=== PATIENT | male | born 1980 | race Caucasian/White ===

== ENCOUNTER 2019-07-28 20:39 | Inpatient (IN) | payer MEDICAID, OTHER ==
[~2019-07-28] VITALS: Ht 172.7 cm; Wt 101.2 kg
[2019-07-28 22:33] LABS: BASOPHILS % 0.6 % (0.0-2.0); HEMATOCRIT. 44.8 % (42.0-52.0); HEMOGLOBIN. 15.8 g/dL (14.0-18.0); MEAN CORPUSCULAR HEMOGLOBIN 31.8 pg (28.0-32.0); MEAN CORPUSCULAR VOLUME 89.9 fL (80.0-94.0); MEAN PLATELET VOLUME 8.4 fl (7.4-10.4); MONOCYTES % 6.7 % (2.0-8.0); NEUTROPHILS % 55.7 % (40.0-76.0); PLATELET 207 x1000/uL (130-400); RED BLOOD CELL COUNT 4.98 mill/uL (4.7-6.1); RED CELL DISTRIBUTION WIDTH 13.4 % (11.6-14.6)
[2019-07-28 22:34] LABS: CLARITY URINE CLEAR (CLEAR); COLOR URINE YELLOW (YELLOW); KETONES URINE NEGATIVE (NEGATIVE); LEUKOCYTE ESTERASE URINE NEGATIVE (NEGATIVE); NITRITE URINE NEGATIVE (NEGATIVE); OCCULT BLOOD URINE NEGATIVE (NEGATIVE); PH URINE 5.5 (4.5-8.0); PROTEIN URINE NEGATIVE (NEGATIVE); SPECIFIC GRAVITY URINE 1.041 (1.005-1.030); UROBILINOGEN URINE 0.2 E.U./dL (0.2-1.0)
[2019-07-28 22:39] LABS: CHLORIDE 99 mEq/L (98-107)
[2019-07-28 22:44] LABS: ETHANOL BLOOD < 10 mg/dL
[2019-07-28 22:46] LABS: *AMPHETAMINES SCREEN URINE PRESUMTIVE POSITIVE (NEGATIVE); *BARBITURATES SCREEN URINE NEGATIVE (NEGATIVE)
[2019-07-28 22:47] LABS: *BENZODIAZEPINES SCREEN URINE NEGATIVE (NEGATIVE); *COCAINE SCREEN URINE NEGATIVE (NEGATIVE); METHADONE URINE SCREEN NEGATIVE (NEGATIVE); OPIATES URINE SCREEN NEGATIVE (NEGATIVE); PHENCYCLIDINE URINE SCREEN NEGATIVE (NEGATIVE)
[2019-07-28 22:48] LABS: CANNABINOID URINE SCREEN PRESUMTIVE POSITIVE (NEGATIVE)
[2019-07-28] MEDS ORDERED: INSULIN REGULAR (HUMULIN R) 300UNITS/3ML SUBCUT ONE (23:00)
[2019-07-28] MEDS ORDERED: SODIUM CHLORIDE 0.9% 1,000 ML IV ONE ×2 (23:00)
[2019-07-29] MEDS ORDERED: AMLODIPINE 2.5MG TABLET PO ONE
[2019-07-29] MEDS ORDERED: SODIUM CHLORIDE 0.9% 1,000 ML IV ONE (11:38)
[2019-07-29 12:23] LABS: CHLORIDE 104 mEq/L (98-107)
[2019-07-29 12:30] LABS: BETA HYDROXYBUTYRATE 0.1 mMol/L (0.0-0.3)
[2019-07-29 12:41] LABS: BASOPHILS % 0.5 % (0.0-2.0); EOSINOPHILS % 2.2 % (0.0-5.0); HEMATOCRIT. 43.3 % (42.0-52.0); HEMOGLOBIN. 15.4 g/dL (14.0-18.0); LYMPHOCYTES % 25.5 % (20.0-50.0); MEAN CORPUSCULAR HEMOGLOBIN 31.9 pg (28.0-32.0); MEAN CORPUSCULAR VOLUME 89.6 fL (80.0-94.0); MEAN PLATELET VOLUME 8.2 fl (7.4-10.4); NEUTROPHILS % 65.8 % (40.0-76.0); PLATELET 191 x1000/uL (130-400); RED BLOOD CELL COUNT 4.84 mill/uL (4.7-6.1); RED CELL DISTRIBUTION WIDTH 13.6 % (11.6-14.6)
[2019-07-29] MEDS ORDERED: INSULIN REGULAR (HUMULIN R) 300UNITS/3ML IV SCH (13:00)
[2019-07-29] MEDS ORDERED: IBUPROFEN 600MG TABLET PO PRN ×2 (14:30→18:30)
[2019-07-29] MEDS ORDERED: MAGNESIUM/ALUMINUM HYDROXIDE/SIMETHICONE 30ML UDC PO PRN (20:45)
[2019-07-29] MEDS ORDERED: DIPHENHYDRAMINE 50MG/ML VIAL IV PRN (20:45)
[2019-07-29] MEDS ORDERED: DOCUSATE SODIUM 100MG CAPSULE PO PRN (20:45)
[2019-07-29] MEDS ORDERED: MORPHINE SULFATE 2 MG/ML CPJ (NOT FOR IM USE) IV PRN (20:45)
[2019-07-29] MEDS ORDERED: HYDROCODONE/ACETAMINOPHEN 10/325MG TABLET PO PRN (20:45)
[2019-07-29] MEDS ORDERED: IPRATROPIUM/ALBUTEROL 0.5-3(2.5)MG/3ML NEB HHN PRN (20:45)
[2019-07-29] MEDS ORDERED: ENOXAPARIN 40MG/0.4ML SYR SUBCUT SCH (20:45)
[2019-07-29] MEDS ORDERED: DEXTROSE 50% WATER 50ML SYRINGE IV PRN (20:45)
[2019-07-29] MEDS ORDERED: ONDANSETRON HCL 4MG/2ML INJ IV PRN (20:45)
[2019-07-29] MEDS ORDERED: NA PHOS,M-B/NA PHOS,DI-BA ENEMA 118ML PR PRN (20:45)
[2019-07-29] MEDS ORDERED: LORAZEPAM 2MG/ML CPJ IV PRN (20:45)
[2019-07-29] MEDS ORDERED: HYDRALAZINE 20MG/ML VIAL IV PRN (20:45)
[2019-07-29 21:00] VITALS: BP 141/105
[2019-07-29] MEDS: BLOOD SUGAR DIAGNOSTIC STRIP TEST SCH (21:00)
[2019-07-29 21:30] VITALS: BP 141/105
[2019-07-29] MEDS: INSULIN LISPRO 100 UNITS/ML SUBCUT SCH (22:03)
[2019-07-29] MEDS: ENOXAPARIN 30MG/0.3ML SYR SUBCUT SCH (22:04)
[2019-07-29] MEDS: SODIUM CHLORIDE 0.9% INJ 3ML FLUSH IVF SCH (22:05)
[2019-07-29] MEDS: SODIUM CHLORIDE 0.45% 1,000 ML IV SCH (23:15)
[2019-07-30] VITALS: BP 116/73
[2019-07-30 04:00] VITALS: BP 145/124
[2019-07-30] MEDS: SODIUM CHLORIDE 0.9% INJ 3ML FLUSH IVF SCH ×3 (05:23→21:21)
[2019-07-30] MEDS: BLOOD SUGAR DIAGNOSTIC STRIP TEST SCH ×4 (06:19→21:21)
[2019-07-30 08:00] VITALS: BP 125/98
[2019-07-30] MEDS: CLONIDINE 0.1MG TABLET PO PRN (08:20)
[2019-07-30] MEDS: ENOXAPARIN 30MG/0.3ML SYR SUBCUT SCH ×2 (08:21→21:22)
[2019-07-30] MEDS: INSULIN LISPRO 100 UNITS/ML SUBCUT SCH ×4 (08:22→21:33)
[2019-07-30] MEDS: SODIUM CHLORIDE 0.45% 1,000 ML IV SCH ×2 (08:44→21:21)
[2019-07-30 09:43] LABS: BASOPHILS % 0.4 % (0.0-2.0); HEMATOCRIT. 43.3 % (42.0-52.0); HEMOGLOBIN. 15.2 g/dL (14.0-18.0); LYMPHOCYTES % 27.4 % (20.0-50.0); MEAN CORPUSCULAR HEMOGLOBIN 31.3 pg (28.0-32.0); MEAN PLATELET VOLUME 8.1 fl (7.4-10.4); MONOCYTES % 5.1 % (2.0-8.0); NEUTROPHILS % 65.1 % (40.0-76.0); PLATELET 172 x1000/uL (130-400); RED BLOOD CELL COUNT 4.86 mill/uL (4.7-6.1); RED CELL DISTRIBUTION WIDTH 13.4 % (11.6-14.6)
[2019-07-30 09:45] LABS: CHLORIDE 102 mEq/L (98-107)
[2019-07-30 12:00] VITALS: BP 128/87
[2019-07-30 16:00] VITALS: BP 139/89
[2019-07-30 20:00] VITALS: BP 142/76
[2019-07-31] VITALS: BP 131/91
[2019-07-31 04:00] VITALS: BP 138/90
[2019-07-31] MEDS: BLOOD SUGAR DIAGNOSTIC STRIP TEST SCH ×4 (06:45→21:08)
[2019-07-31] MEDS: SODIUM CHLORIDE 0.9% INJ 3ML FLUSH IVF SCH ×3 (06:45→21:08)
[2019-07-31 08:00] VITALS: BP 138/79
[2019-07-31] MEDS: ENOXAPARIN 30MG/0.3ML SYR SUBCUT SCH ×2 (08:26→21:07)
[2019-07-31] MEDS: INSULIN LISPRO 100 UNITS/ML SUBCUT SCH ×4 (08:26→21:07)
[2019-07-31 12:00] VITALS: BP 141/110
[2019-07-31] MEDS: SODIUM CHLORIDE 0.45% 1,000 ML IV SCH ×2 (12:30→23:50)
[2019-07-31] MEDS: ACETAMINOPHEN 325MG TABLET PO PRN ×2 (12:41→21:08)
[2019-07-31] MEDS: CLONIDINE 0.1MG TABLET PO PRN ×2 (12:48→21:10)
[2019-07-31 16:00] VITALS: BP 134/86
[2019-07-31 20:44] VITALS: BP 162/106
[2019-07-31] MEDS: GUAIFENESIN 200MG/10ML SUGAR FREE UDC PO PRN (21:07)
[2019-08-01 00:45] VITALS: BP 145/112
[2019-08-01] MEDS: GUAIFENESIN 200MG/10ML SUGAR FREE UDC PO PRN (03:05)
[2019-08-01 04:00] VITALS: BP 145/97
[2019-08-01] MEDS: ACETAMINOPHEN 325MG TABLET PO PRN ×2 (04:11→20:22)
[2019-08-01] MEDS: BLOOD SUGAR DIAGNOSTIC STRIP TEST SCH ×4 (06:35→20:22)
[2019-08-01] MEDS: SODIUM CHLORIDE 0.9% INJ 3ML FLUSH IVF SCH ×3 (06:35→20:56)
[2019-08-01 08:00] VITALS: BP 177/109
[2019-08-01] MEDS: ENOXAPARIN 30MG/0.3ML SYR SUBCUT SCH ×2 (08:53→20:22)
[2019-08-01] MEDS: INSULIN LISPRO 100 UNITS/ML SUBCUT SCH ×4 (08:58→20:55)
[2019-08-01 12:00] VITALS: BP 146/96
[2019-08-01] MEDS: LISINOPRIL 20MG TABLET PO SCH (13:16)
[2019-08-01] MEDS: SODIUM CHLORIDE 0.45% 1,000 ML IV SCH (15:18)
[2019-08-01 16:00] VITALS: BP 166/112
[2019-08-01] MEDS: CLONIDINE 0.1MG TABLET PO PRN (17:56)
[2019-08-01 20:39] VITALS: BP 136/97
[2019-08-02] VITALS: BP 121/84
[2019-08-02 04:00] VITALS: BP 132/97
[2019-08-02] MEDS: SODIUM CHLORIDE 0.45% 1,000 ML IV SCH (04:53)
[2019-08-02] MEDS: ACETAMINOPHEN 325MG TABLET PO PRN (04:55)
[2019-08-02] MEDS: SODIUM CHLORIDE 0.9% INJ 3ML FLUSH IVF SCH ×3 (05:55→21:47)
[2019-08-02] MEDS: BLOOD SUGAR DIAGNOSTIC STRIP TEST SCH ×4 (06:33→21:17)
[2019-08-02 08:00] VITALS: BP 135/86
[2019-08-02] MEDS: LISINOPRIL 20MG TABLET PO SCH (08:31)
[2019-08-02] MEDS: ENOXAPARIN 30MG/0.3ML SYR SUBCUT SCH ×2 (08:31→21:34)
[2019-08-02] MEDS: INSULIN LISPRO 100 UNITS/ML SUBCUT SCH ×4 (08:51→21:47)
[2019-08-02 12:00] VITALS: BP 136/86
[2019-08-02 16:00] VITALS: BP 136/70
[2019-08-02 20:00] VITALS: BP 129/84
[2019-08-03] VITALS: BP 139/92
[2019-08-03 04:00] VITALS: BP 127/66
[2019-08-03] MEDS: SODIUM CHLORIDE 0.9% INJ 3ML FLUSH IVF SCH ×3 (05:06→21:09)
[2019-08-03] MEDS: BLOOD SUGAR DIAGNOSTIC STRIP TEST SCH ×4 (06:01→20:46)
[2019-08-03 08:00] VITALS: BP 120/79
[2019-08-03] MEDS: INSULIN LISPRO 100 UNITS/ML SUBCUT SCH ×4 (08:16→20:45)
[2019-08-03] MEDS: ENOXAPARIN 30MG/0.3ML SYR SUBCUT SCH ×2 (08:17→20:44)
[2019-08-03] MEDS: LISINOPRIL 20MG TABLET PO SCH (08:17)
[2019-08-03 12:00] VITALS: BP 126/80
[2019-08-03 16:00] VITALS: BP 133/87
[2019-08-03 20:00] VITALS: BP 137/92
[2019-08-04] VITALS: BP 120/60
[2019-08-04 05:56] VITALS: BP 140/79
[2019-08-04] MEDS: SODIUM CHLORIDE 0.9% INJ 3ML FLUSH IVF SCH ×3 (06:08→21:36)
[2019-08-04] MEDS: BLOOD SUGAR DIAGNOSTIC STRIP TEST SCH ×4 (06:20→20:09)
[2019-08-04 08:00] VITALS: BP 135/93
[2019-08-04] MEDS: ENOXAPARIN 30MG/0.3ML SYR SUBCUT SCH ×2 (08:10→20:08)
[2019-08-04] MEDS: INSULIN LISPRO 100 UNITS/ML SUBCUT SCH ×4 (08:12→20:09)
[2019-08-04] MEDS: LISINOPRIL 20MG TABLET PO SCH (08:18)
[2019-08-04 12:00] VITALS: BP 119/89
[2019-08-04] MEDS: ACETAMINOPHEN 325MG TABLET PO PRN (13:02)
[2019-08-04 16:00] VITALS: BP 121/85
[2019-08-04 20:26] VITALS: BP 122/89
[2019-08-05] VITALS (7 sets, daily range): BP systolic 114–162; BP diastolic 75–98
[2019-08-05] MEDS: SODIUM CHLORIDE 0.9% INJ 3ML FLUSH IVF SCH ×3 (05:16→22:31)
[2019-08-05] MEDS: BLOOD SUGAR DIAGNOSTIC STRIP TEST SCH ×4 (06:22→22:31)
[2019-08-05] MEDS: ENOXAPARIN 30MG/0.3ML SYR SUBCUT SCH ×2 (08:01→22:02)
[2019-08-05] MEDS: LISINOPRIL 20MG TABLET PO SCH (08:02)
[2019-08-05] MEDS: INSULIN LISPRO 100 UNITS/ML SUBCUT SCH ×4 (08:03→22:31)
[2019-08-05] MEDS: ACETAMINOPHEN 325MG TABLET PO PRN ×2 (16:21→22:03)
[2019-08-06] MEDS: CLONIDINE 0.1MG TABLET PO PRN ×2 (00:04→23:54)
[2019-08-06] MEDS: GUAIFENESIN 200MG/10ML SUGAR FREE UDC PO PRN (00:06)
[2019-08-06 04:00] VITALS: BP 119/84
[2019-08-06] MEDS: BLOOD SUGAR DIAGNOSTIC STRIP TEST SCH ×4 (06:49→20:11)
[2019-08-06] MEDS: SODIUM CHLORIDE 0.9% INJ 3ML FLUSH IVF SCH ×3 (06:49→20:12)
[2019-08-06 08:00] VITALS: BP 128/70
[2019-08-06] MEDS: INSULIN LISPRO 100 UNITS/ML SUBCUT SCH ×4 (08:22→20:59)
[2019-08-06] MEDS: ENOXAPARIN 30MG/0.3ML SYR SUBCUT SCH ×2 (08:22→20:12)
[2019-08-06] MEDS: LISINOPRIL 20MG TABLET PO SCH (08:22)
[2019-08-06] MEDS: ACETAMINOPHEN 325MG TABLET PO PRN ×2 (09:00→18:00)
[2019-08-06 12:00] VITALS: BP 134/91
[2019-08-06 16:00] VITALS: BP 138/89
[2019-08-06 20:00] VITALS: BP 138/92
[2019-08-07] VITALS (7 sets, daily range): BP systolic 113–152; BP diastolic 72–97
[2019-08-07] MEDS: BLOOD SUGAR DIAGNOSTIC STRIP TEST SCH ×4 (05:49→20:51)
[2019-08-07] MEDS: INSULIN LISPRO 100 UNITS/ML SUBCUT SCH ×4 (05:49→20:59)
[2019-08-07] MEDS: SODIUM CHLORIDE 0.9% INJ 3ML FLUSH IVF SCH ×3 (05:50→22:00)
[2019-08-07 06:12] LABS: HEMOGLOBIN 16.1 g/dL (14.0-18.0); MEAN CORPUSCULAR HEMOGLOBIN 31.6 pg (28.0-32.0); MEAN CORPUSCULAR VOLUME 88.4 fL (80.0-94.0); PLATELET 206 x1000/uL (130-400); RED BLOOD CELL COUNT 5.09 mill/uL (4.7-6.1); RED CELL DISTRIBUTION WIDTH 13.4 % (11.6-14.6)
[2019-08-07 06:24] LABS: CHLORIDE 105 mEq/L (98-107)
[2019-08-07] MEDS: LISINOPRIL 20MG TABLET PO SCH (08:40)
[2019-08-07] MEDS: ACETAMINOPHEN 325MG TABLET PO PRN ×2 (08:41→20:45)
[2019-08-07] MEDS: ENOXAPARIN 30MG/0.3ML SYR SUBCUT SCH ×2 (08:47→20:51)
[2019-08-07] MEDS ORDERED: HYDRALAZINE 10 MG in SODIUM CHLORIDE 0.9% 49.5 ML IV PRN (10:45)
[2019-08-07] MEDS: GUAIFENESIN 200MG/10ML SUGAR FREE UDC PO PRN (20:51)
[2019-08-08] VITALS: BP 128/82
[2019-08-08 04:00] VITALS: BP 142/91
[2019-08-08] MEDS: SODIUM CHLORIDE 0.9% INJ 3ML FLUSH IVF SCH ×3 (05:06→22:03)
[2019-08-08] MEDS: BLOOD SUGAR DIAGNOSTIC STRIP TEST SCH ×4 (06:48→21:18)
[2019-08-08] MEDS: INSULIN LISPRO 100 UNITS/ML SUBCUT SCH ×4 (07:50→22:03)
[2019-08-08 08:00] VITALS: BP 126/87
[2019-08-08] MEDS: GUAIFENESIN 200MG/10ML SUGAR FREE UDC PO PRN ×2 (09:09→21:17)
[2019-08-08] MEDS: LISINOPRIL 20MG TABLET PO SCH (09:09)
[2019-08-08] MEDS: ENOXAPARIN 30MG/0.3ML SYR SUBCUT SCH ×2 (09:09→21:17)
[2019-08-08 16:00] VITALS: BP 144/94
[2019-08-08] MEDS: ACETAMINOPHEN 325MG TABLET PO PRN (17:26)
[2019-08-08 20:00] VITALS: BP 133/90
[2019-08-09 00:15] VITALS: BP 121/78
[2019-08-09] MEDS: ACETAMINOPHEN 325MG TABLET PO PRN ×2 (01:31→09:46)
[2019-08-09 04:00] VITALS: BP 117/84
[2019-08-09] MEDS: SODIUM CHLORIDE 0.9% INJ 3ML FLUSH IVF SCH ×2 (05:37→14:00)
[2019-08-09] MEDS: BLOOD SUGAR DIAGNOSTIC STRIP TEST SCH ×4 (06:56→21:40)
[2019-08-09] MEDS: INSULIN LISPRO 100 UNITS/ML SUBCUT SCH ×4 (06:56→22:14)
[2019-08-09 08:00] VITALS: BP 126/91
[2019-08-09] MEDS: LISINOPRIL 20MG TABLET PO SCH (09:46)
[2019-08-09] MEDS: ENOXAPARIN 30MG/0.3ML SYR SUBCUT SCH ×2 (09:46→22:14)
[2019-08-09 20:00] VITALS: BP 136/81
[2019-08-10] VITALS: BP 131/79
[2019-08-10 04:00] VITALS: BP 152/98
[2019-08-10] MEDS: ACETAMINOPHEN 325MG TABLET PO PRN ×2 (04:11→15:37)
[2019-08-10] MEDS: BLOOD SUGAR DIAGNOSTIC STRIP TEST SCH ×4 (07:39→21:22)
[2019-08-10] MEDS: INSULIN LISPRO 100 UNITS/ML SUBCUT SCH ×4 (07:39→21:40)
[2019-08-10 08:00] VITALS: BP 140/78
[2019-08-10] MEDS: LISINOPRIL 20MG TABLET PO SCH (08:27)
[2019-08-10] MEDS: ENOXAPARIN 30MG/0.3ML SYR SUBCUT SCH ×2 (08:28→21:40)
[2019-08-10] MEDS: GUAIFENESIN 200MG/10ML SUGAR FREE UDC PO PRN (09:01)
[2019-08-10 12:00] VITALS: BP 137/80
[2019-08-10] MEDS: SODIUM CHLORIDE 0.9% INJ 3ML FLUSH IVF SCH (13:01)
[2019-08-10 16:00] VITALS: BP 132/73
[2019-08-10 20:00] VITALS: BP 127/92
[2019-08-11] VITALS: BP 128/96
[2019-08-11 04:00] VITALS: BP 124/94
[2019-08-11] MEDS: BLOOD SUGAR DIAGNOSTIC STRIP TEST SCH ×4 (06:28→21:07)
[2019-08-11] MEDS: INSULIN LISPRO 100 UNITS/ML SUBCUT SCH ×4 (07:50→21:13)
[2019-08-11 08:00] VITALS: BP 141/97
[2019-08-11] MEDS: ACETAMINOPHEN 325MG TABLET PO PRN ×2 (08:15→17:46)
[2019-08-11] MEDS: LISINOPRIL 20MG TABLET PO SCH (08:16)
[2019-08-11] MEDS: ENOXAPARIN 30MG/0.3ML SYR SUBCUT SCH ×2 (08:16→21:00)
[2019-08-11 12:00] VITALS: BP 130/85
[2019-08-11] MEDS: SODIUM CHLORIDE 0.9% INJ 3ML FLUSH IVF SCH ×2 (13:12→21:01)
[2019-08-11 16:00] VITALS: BP 129/93
[2019-08-11 20:00] VITALS: BP 148/93
[2019-08-11] MEDS: GUAIFENESIN 200MG/10ML SUGAR FREE UDC PO PRN (21:00)
[2019-08-12] VITALS: BP 129/80
[2019-08-12] MEDS: ACETAMINOPHEN 325MG TABLET PO PRN (03:03)
[2019-08-12 04:00] VITALS: BP 127/87
[2019-08-12] MEDS: SODIUM CHLORIDE 0.9% INJ 3ML FLUSH IVF SCH (05:53)
[2019-08-12] MEDS: BLOOD SUGAR DIAGNOSTIC STRIP TEST SCH ×2 (06:34→12:20)
[2019-08-12] MEDS: INSULIN LISPRO 100 UNITS/ML SUBCUT SCH ×2 (07:50→12:50)
[2019-08-12 08:00] VITALS: BP 130/91
[2019-08-12] MEDS: LISINOPRIL 20MG TABLET PO SCH (08:57)
[2019-08-12] MEDS: ENOXAPARIN 30MG/0.3ML SYR SUBCUT SCH (08:58)
[2019-08-12 12:00] VITALS: BP 146/99
== END 2019-08-12 15:56 | disposition home or self-care (01) | DRG 420 ==
LOC: ER 20:39 → MICUSO 07-29 14:30 → EDBEDREQ 07-29 14:42 → 7WST 07-29 21:52 → 6WST 07-30 23:12 → 6EST 08-07 10:27
PROVIDERS: ADMIT Internal Medicine; ATTEND Internal Medicine
DX: E11.65 Type 2 diabetes mellitus with hyperglycemia (principal); F17.210 Nicotine dependence, cigarettes, uncomplicated; R53.1 Weakness; F19.10 Other psychoactive substance abuse, uncomplicated; Z20.828 Contact with and (suspected) exposure to other viral communicable diseases; Z59.0 Homelessness; Z91.19 Patient's noncompliance with other medical treatment and regimen; Z79.899 Other long term (current) drug therapy; Z79.4 Long term (current) use of insulin
CPT/HCPCS: 36415; 71045; 80048; 80053; 80305; 80320; 81003; 82010; 82962; 85025; 85027; 93005; 97116; 97162; 99285; J0360; J1200; J1650; J1815; J7030; G0480; U0003-CS

== ENCOUNTER 2019-09-04 18:24 | Emergency (ER) | payer MEDICAID ==
[~2019-09-04] VITALS: Ht 177.8 cm; Wt 112.0 kg
[2019-09-04] MEDS ORDERED: SODIUM CHLORIDE 0.9% 1,000 ML IV ONE (19:31)
[2019-09-04 20:29] LABS: BASOPHILS % 0.5 % (0.0-2.0); HEMATOCRIT. 39.6 % (42.0-52.0); HEMOGLOBIN. 14.1 g/dL (14.0-18.0); LYMPHOCYTES % 34.3 % (20.0-50.0); MEAN CORPUSCULAR VOLUME 90.2 fL (80.0-94.0); MEAN PLATELET VOLUME 8.2 fl (7.4-10.4); NEUTROPHILS % 56.2 % (40.0-76.0); PLATELET 215 x1000/uL (130-400); RED BLOOD CELL COUNT 4.39 mill/uL (4.7-6.1); RED CELL DISTRIBUTION WIDTH 13.2 % (11.6-14.6)
[2019-09-04 20:45] LABS: CHLORIDE 101 mEq/L (98-107)
[2019-09-04 20:52] LABS: PHOSPHORUS 3.1 mg/dL (2.5-4.9)
[2019-09-04 21:37] LABS: BETA HYDROXYBUTYRATE 0.1 mMol/L (0.0-0.3)
[2019-09-04 23:00] LABS: CLARITY URINE CLEAR (CLEAR); COLOR URINE YELLOW (YELLOW); KETONES URINE NEGATIVE (NEGATIVE); LEUKOCYTE ESTERASE URINE NEGATIVE (NEGATIVE); NITRITE URINE NEGATIVE (NEGATIVE); OCCULT BLOOD URINE NEGATIVE (NEGATIVE); PH URINE 6.5 (4.5-8.0); PROTEIN URINE NEGATIVE (NEGATIVE); SPECIFIC GRAVITY URINE 1.031 (1.005-1.030)
[2019-09-04] MEDS ORDERED: INSULIN REGULAR (HUMULIN R) 300UNITS/3ML SUBCUT ONE (23:15)
[2019-09-05 13:15] VITALS: BP 149/87
== END 2019-09-05 13:45 | disposition home or self-care (01) ==
LOC: ER 18:24
DX: Z03.818 Encounter for observation for suspected exposure to other biological agents ruled out (principal); R53.1 Weakness; R05 Cough; R06.02 Shortness of breath; E11.65 Type 2 diabetes mellitus with hyperglycemia; Z76.0 Encounter for issue of repeat prescription; Z79.4 Long term (current) use of insulin; Z59.0 Homelessness
CPT/HCPCS: 36415; 71045; 80053; 81003; 82010; 82962; 83615; 83690; 83735; 84100; 85025; 96360; 96372; 99285; C9803; J1815; J7030; U0003

== ENCOUNTER 2020-07-08 13:02 | Inpatient (IN) | payer MEDICAID ==
[~2020-07-08] VITALS: Ht 170.2 cm; Wt 98.4 kg
[2020-07-08 14:18] LABS: CHLORIDE 101 mEq/L (98-107)
[2020-07-08 14:23] LABS: BASOPHILS % 0.3 % (0.0-2.0); EOSINOPHILS % 2.9 % (0.0-5.0); HEMATOCRIT. 43.3 % (42.0-52.0); HEMOGLOBIN. 14.9 g/dL (14.0-18.0); LYMPHOCYTES % 25.2 % (20.0-50.0); MEAN CORPUSCULAR HEMOGLOBIN 31.2 pg (28.0-32.0); MEAN CORPUSCULAR VOLUME 90.9 fL (80.0-94.0); MONOCYTES % 6.5 % (2.0-8.0); NEUTROPHILS % 65.1 % (40.0-76.0); PLATELET 206 x1000/uL (130-400); RED BLOOD CELL COUNT 4.77 mill/uL (4.7-6.1); RED CELL DISTRIBUTION WIDTH 13.8 % (11.6-14.6)
[2020-07-08] MEDS ORDERED: PIPERACILLIN/TAZ 3.375G PREMIX 50 ML IV ONE (15:15)
[2020-07-08] MEDS ORDERED: INSULIN REGULAR (HUMULIN R) 300UNITS/3ML VIAL IV STA (15:23)
[2020-07-08] MEDS ORDERED: LACTATED RINGERS 1,000 ML IV SCH (15:30)
[2020-07-08 15:45] LABS: ETHANOL BLOOD < 10 mg/dL
[2020-07-08] MEDS ORDERED: ASPIRIN 81MG EC TABLET PO ONE (16:15)
[2020-07-08] MEDS ORDERED: HEPARIN 25,000 UNITS PREMIX 250 ML IV STA (17:51)
[2020-07-08 17:56] LABS: CLARITY URINE CLEAR (CLEAR); COLOR URINE YELLOW (YELLOW); KETONES URINE NEGATIVE (NEGATIVE); LEUKOCYTE ESTERASE URINE NEGATIVE (NEGATIVE); NITRITE URINE NEGATIVE (NEGATIVE); OCCULT BLOOD URINE NEGATIVE (NEGATIVE); PH URINE 5.5 (4.5-8.0); PROTEIN URINE NEGATIVE (NEGATIVE); SPECIFIC GRAVITY URINE 1.034 (1.005-1.030); UROBILINOGEN URINE 0.2 E.U./dL (0.2-1.0)
[2020-07-08] MEDS ORDERED: MORPHINE SULFATE 4 MG/ML CPJ (NOT FOR IM USE) IV PRN (18:00)
[2020-07-08] MEDS ORDERED: HEPARIN 5000 UNITS/ML VIAL IV ONE (18:00)
[2020-07-08 18:17] LABS: *AMPHETAMINES SCREEN URINE PRESUMTIVE POSITIVE (NEGATIVE); *BARBITURATES SCREEN URINE NEGATIVE (NEGATIVE); *BENZODIAZEPINES SCREEN URINE NEGATIVE (NEGATIVE); *COCAINE SCREEN URINE NEGATIVE (NEGATIVE); METHADONE URINE SCREEN NEGATIVE (NEGATIVE)
[2020-07-08 18:18] LABS: CANNABINOID URINE SCREEN NEGATIVE (NEGATIVE); OPIATES URINE SCREEN NEGATIVE (NEGATIVE); PHENCYCLIDINE URINE SCREEN NEGATIVE (NEGATIVE)
[2020-07-08 19:55] LABS: PARTIAL THROMBOPLASTIN TIME 21.5 sec (23.4-31.0); PROTHROMBIN TIME 10.5 sec (9.6-11.0)
[2020-07-08] MEDS ORDERED: HEPARIN 5000 UNITS/ML VIAL IV PRN ×2 (20:00)
[2020-07-08] MEDS ORDERED: HEPARIN 5000 UNITS/ML VIAL IV NR (20:00)
[2020-07-08] MEDS ORDERED: HEPARIN 25,000 UNITS PREMIX 250 ML IV PRN (20:00)
[2020-07-09 08:30] VITALS: BP 144/115
[2020-07-09] MEDS ORDERED: VANCOMYCIN 1 G PREMIX 200 ML IV SCH ×2 (09:00→22:00)
[2020-07-09] MEDS ORDERED: DEXTROSE 50% WATER 50ML SYRINGE IV PRN ×2 (09:45)
[2020-07-09] MEDS ORDERED: ONDANSETRON HCL 4MG/2ML INJ IV PRN (09:45)
[2020-07-09] MEDS ORDERED: DIPHENHYDRAMINE 50MG/ML VIAL IV PRN (09:45)
[2020-07-09] MEDS ORDERED: ACETAMINOPHEN 325MG TABLET PO PRN (09:45)
[2020-07-09] MEDS ORDERED: DOCUSATE SODIUM 100MG CAPSULE PO PRN (09:45)
[2020-07-09] MEDS ORDERED: MAGNESIUM/ALUMINUM HYDROXIDE/SIMETHICONE 30ML UDC PO PRN (09:45)
[2020-07-09] MEDS ORDERED: CEFTRIAXONE 1,000 MG in DEXTROSE 5% WATER 50 ML IV SCH (10:00)
[2020-07-09] MEDS: OMEPRAZOLE 20MG CAPSULE EXTENDED RELEASE PO SCH (10:26)
[2020-07-09] MEDS: CEFTRIAXONE 1,000 MG in DEXTROSE 5% WATER 50 ML IV SCH (10:27)
[2020-07-09] MEDS: CLINDAMYCIN HCL 150MG CAPSULE PO SCH ×4 (10:27→21:05)
[2020-07-09] MEDS ORDERED: VANCOMYCIN 2,000 MG in DEXT 5% WATER 500 ML IV SCH (11:00)
[2020-07-09 11:41] LABS: HEMATOCRIT 46.2 % (42.0-52.0); HEMOGLOBIN 15.8 g/dL (14.0-18.0); MEAN CORPUSCULAR VOLUME 90.7 fL (80.0-94.0); PLATELET 193 x1000/uL (130-400); RED CELL DISTRIBUTION WIDTH 13.2 % (11.6-14.6)
[2020-07-09 11:50] LABS: CHLORIDE 101 mEq/L (98-107)
[2020-07-09 12:00] VITALS: BP 139/99
[2020-07-09] MEDS: BLOOD SUGAR DIAGNOSTIC STRIP TEST SCH ×3 (12:20→21:02)
[2020-07-09 13:00] VITALS: BP 144/115
[2020-07-09] MEDS: INSULIN LISPRO 100 UNITS/ML SUBCUT SCH ×3 (13:36→21:16)
[2020-07-09] MEDS ORDERED: PNEUMOCOCCAL 23-VAL P-SAC VAC 0.5 ML IM ONE (14:45)
[2020-07-09 16:00] VITALS: BP 134/90
[2020-07-09 16:18] LABS: CLARITY URINE CLEAR (CLEAR); COLOR URINE YELLOW (YELLOW); KETONES URINE NEGATIVE (NEGATIVE); LEUKOCYTE ESTERASE URINE NEGATIVE (NEGATIVE); NITRITE URINE NEGATIVE (NEGATIVE); OCCULT BLOOD URINE NEGATIVE (NEGATIVE); PH URINE 6.5 (4.5-8.0); PROTEIN URINE NEGATIVE (NEGATIVE); SPECIFIC GRAVITY URINE 1.027 (1.005-1.030); UROBILINOGEN URINE 0.2 E.U./dL (0.2-1.0)
[2020-07-09 17:09] LABS: CREATINE KINASE MB FRACTION 1.8 ng/mL (0.5-3.6)
[2020-07-09 20:00] VITALS: BP 196/95
[2020-07-09] MEDS: VANCOMYCIN 1 G PREMIX 200 ML IV SCH (21:05)
[2020-07-09] MEDS: CLONIDINE 0.1MG TABLET PO PRN (21:05)
[2020-07-10 00:28] VITALS: BP 106/65
[2020-07-10 04:00] VITALS: BP 148/86
[2020-07-10] MEDS: VANCOMYCIN 1 G PREMIX 200 ML IV SCH ×3 (05:52→21:23)
[2020-07-10 06:54] LABS: BASOPHILS % 0.5 % (0.0-2.0); EOSINOPHILS % 2.2 % (0.0-5.0); HEMOGLOBIN. 16.5 g/dL (14.0-18.0); LYMPHOCYTES % 24.5 % (20.0-50.0); MEAN CORPUSCULAR HEMOGLOBIN 31.6 pg (28.0-32.0); MEAN CORPUSCULAR VOLUME 89.9 fL (80.0-94.0); MEAN PLATELET VOLUME 8.1 fl (7.4-10.4); MONOCYTES % 5.4 % (2.0-8.0); NEUTROPHILS % 67.4 % (40.0-76.0); PLATELET 180 x1000/uL (130-400); RED BLOOD CELL COUNT 5.23 mill/uL (4.7-6.1); RED CELL DISTRIBUTION WIDTH 13.1 % (11.6-14.6)
[2020-07-10 07:01] LABS: CHLORIDE 101 mEq/L (98-107)
[2020-07-10 07:11] LABS: PHOSPHORUS 3.1 mg/dL (2.5-4.9)
[2020-07-10] MEDS: BLOOD SUGAR DIAGNOSTIC STRIP TEST SCH ×4 (07:41→20:31)
[2020-07-10 08:00] VITALS: BP 135/77
[2020-07-10] MEDS: CLINDAMYCIN HCL 150MG CAPSULE PO SCH ×4 (09:01→20:30)
[2020-07-10] MEDS: CEFTRIAXONE 1,000 MG in DEXTROSE 5% WATER 50 ML IV SCH (09:02)
[2020-07-10] MEDS: INSULIN LISPRO 100 UNITS/ML SUBCUT SCH ×4 (09:02→20:30)
[2020-07-10] MEDS: OMEPRAZOLE 20MG CAPSULE EXTENDED RELEASE PO SCH (09:02)
[2020-07-10 12:00] VITALS: BP 121/86
[2020-07-10] MEDS ORDERED: INFLUENZA VACCINE 05/PF 0.5 ML VIAL IM ONE (12:00)
[2020-07-10] MEDS ORDERED: PNEUMOCOCCAL 23-VAL P-SAC VAC 0.5 ML IM ONE (12:00)
[2020-07-10 16:00] VITALS: BP 132/92
[2020-07-10 20:16] VITALS: BP 141/84
[2020-07-10] MEDS: HYDROCODONE/ACETAMINOPHEN 5/325MG TABLET PO PRN (20:31)
[2020-07-10] MEDS: INSULIN GLARGINE UD 100 UNITS/ML SYR SUBCUT SCH (21:27)
[2020-07-11 00:16] VITALS: BP 108/72
[2020-07-11 04:10] VITALS: BP 142/86
[2020-07-11] MEDS: VANCOMYCIN 1 G PREMIX 200 ML IV SCH ×3 (05:36→21:00)
[2020-07-11] MEDS: BLOOD SUGAR DIAGNOSTIC STRIP TEST SCH ×4 (06:47→21:00)
[2020-07-11] MEDS: OMEPRAZOLE 20MG CAPSULE EXTENDED RELEASE PO SCH (06:56)
[2020-07-11 07:00] LABS: BASOPHILS % 0.5 % (0.0-2.0); EOSINOPHILS % 2.1 % (0.0-5.0); HEMATOCRIT. 45.9 % (42.0-52.0); HEMOGLOBIN. 16.4 g/dL (14.0-18.0); LYMPHOCYTES % 29.1 % (20.0-50.0); MEAN CORPUSCULAR HEMOGLOBIN 31.5 pg (28.0-32.0); MEAN CORPUSCULAR VOLUME 88.1 fL (80.0-94.0); MEAN PLATELET VOLUME 8.3 fl (7.4-10.4); MONOCYTES % 6.1 % (2.0-8.0); NEUTROPHILS % 62.2 % (40.0-76.0); PLATELET 183 x1000/uL (130-400); RED BLOOD CELL COUNT 5.21 mill/uL (4.7-6.1)
[2020-07-11 07:14] LABS: CHLORIDE 103 mEq/L (98-107)
[2020-07-11] MEDS: CLINDAMYCIN HCL 150MG CAPSULE PO SCH ×4 (07:57→20:59)
[2020-07-11] MEDS: CEFTRIAXONE 1,000 MG in DEXTROSE 5% WATER 50 ML IV SCH (07:57)
[2020-07-11 08:00] VITALS: BP 126/89
[2020-07-11] MEDS: INSULIN LISPRO 100 UNITS/ML SUBCUT SCH ×4 (08:08→20:58)
[2020-07-11 12:00] VITALS: BP 148/92
[2020-07-11] MEDS ORDERED: OMEP20CA14 PO (14:05)
[2020-07-11] MEDS ORDERED: LANTUSUD SUBCUT (14:05)
[2020-07-11] MEDS ORDERED: CLIN-26 PO (14:05)
[2020-07-11 16:00] VITALS: BP 126/89
[2020-07-11 19:42] VITALS: BP 163/90
[2020-07-11] MEDS: HYDROCODONE/ACETAMINOPHEN 5/325MG TABLET PO PRN (20:58)
[2020-07-11] MEDS: CLONIDINE 0.1MG TABLET PO PRN (21:00)
[2020-07-11] MEDS: INSULIN GLARGINE UD 100 UNITS/ML SYR SUBCUT SCH (22:06)
[2020-07-12 00:35] VITALS: BP 140/96
[2020-07-12 04:42] VITALS: BP 141/95
[2020-07-12] MEDS: VANCOMYCIN 1 G PREMIX 200 ML IV SCH ×2 (05:18→13:28)
[2020-07-12] MEDS: OMEPRAZOLE 20MG CAPSULE EXTENDED RELEASE PO SCH (06:18)
[2020-07-12] MEDS: BLOOD SUGAR DIAGNOSTIC STRIP TEST SCH ×3 (06:36→17:52)
[2020-07-12 06:56] LABS: CHLORIDE 103 mEq/L (98-107)
[2020-07-12 07:54] VITALS: BP 146/91
[2020-07-12 08:20] LABS: BASOPHILS % 1.4 % (0.0-2.0); EOSINOPHILS % 3.3 % (0.0-5.0); HEMOGLOBIN. 15.8 g/dL (14.0-18.0); LYMPHOCYTES % 35.3 % (20.0-50.0); MEAN CORPUSCULAR VOLUME 88.5 fL (80.0-94.0); MEAN PLATELET VOLUME 8.4 fl (7.4-10.4); MONOCYTES % 5.6 % (2.0-8.0); NEUTROPHILS % 54.4 % (40.0-76.0); PLATELET 179 x1000/uL (130-400); RED BLOOD CELL COUNT 5.09 mill/uL (4.7-6.1); RED CELL DISTRIBUTION WIDTH 13.1 % (11.6-14.6)
[2020-07-12] MEDS: CLINDAMYCIN HCL 150MG CAPSULE PO SCH ×3 (09:21→17:53)
[2020-07-12] MEDS: CEFTRIAXONE 1,000 MG in DEXTROSE 5% WATER 50 ML IV SCH (09:21)
[2020-07-12] MEDS: INSULIN LISPRO 100 UNITS/ML SUBCUT SCH ×3 (09:42→17:54)
[2020-07-12] MEDS: HYDROCODONE/ACETAMINOPHEN 5/325MG TABLET PO PRN (09:43)
[2020-07-12] MEDS ORDERED: AMLODIPINE 5MG TABLET PO SCH (10:45)
[2020-07-12 12:12] VITALS: BP 130/92
[2020-07-12 16:00] VITALS: BP 123/88
[2020-07-12 18:46] VITALS: BP 123/88
== END 2020-07-12 19:20 | disposition home or self-care (01) | DRG 812 ==
LOC: ER 13:51 → 6WST 18:02 → ENRESERV 07-09 07:29
PROVIDERS: ADMIT Internal Medicine; ATTEND Internal Medicine
DX: T43.621A Poisoning by amphetamines, accidental (unintentional), initial encounter (principal); E11.65 Type 2 diabetes mellitus with hyperglycemia; I86.1 Scrotal varices; K59.00 Constipation, unspecified; E78.00 Pure hypercholesterolemia, unspecified; F15.10 Other stimulant abuse, uncomplicated; I10 Essential (primary) hypertension; N49.2 Inflammatory disorders of scrotum; Z71.51 Drug abuse counseling and surveillance of drug abuser; Y92.89 Other specified places as the place of occurrence of the external cause; Z59.0 Homelessness; N50.3 Cyst of epididymis; R74.8 Abnormal levels of other serum enzymes
CPT/HCPCS: 36415; 71045; 74176; 76870; 80048; 80053; 80076; 80202; 80305; 80320; 81003; 82550; 82553; 82947; 82962; 83036; 83605; 83735; 83880; 84100; 84484; 85025; 85027; 90686; 90732; 93005; 93306; 93970; 93976; 97116; 97161; 99291; J0696; J1644; J1815; J2270; J2543; J3370; J7040; J7060; G0480

== ENCOUNTER 2020-11-10 03:25 | Emergency (ER) | payer MEDICAID ==
[~2020-11-10] VITALS: Ht 170.2 cm; Wt 109.0 kg
[~2020-11-10 03:25] MED LIST: CLIN-26 PO; LANTUSUD SUBCUT; OMEP20CA14 PO
[2020-11-10 06:21] LABS: BASOPHILS % 0.8 % (0.0-2.0); HEMATOCRIT. 40.2 % (42.0-52.0); HEMOGLOBIN. 14.1 g/dL (14.0-18.0); LYMPHOCYTES % 35.9 % (20.0-50.0); MEAN CORPUSCULAR HEMOGLOBIN 31.2 pg (28.0-32.0); MEAN CORPUSCULAR VOLUME 88.7 fL (80.0-94.0); MEAN PLATELET VOLUME 7.1 fl (7.4-10.4); MONOCYTES % 6.4 % (2.0-8.0); NEUTROPHILS % 53.9 % (40.0-76.0); PLATELET 250 x1000/uL (130-400); RED BLOOD CELL COUNT 4.53 mill/uL (4.7-6.1); RED CELL DISTRIBUTION WIDTH 13.9 % (11.6-14.6)
[2020-11-10 06:27] LABS: CHLORIDE 102 mEq/L (98-107)
[2020-11-10 06:31] LABS: ETHANOL BLOOD < 10 mg/dL
[2020-11-10 06:40] LABS: PROTHROMBIN TIME 10.5 sec (9.6-11.0)
[2020-11-10 07:57] LABS: CLARITY URINE CLEAR (CLEAR); COLOR URINE YELLOW (YELLOW); KETONES URINE NEGATIVE (NEGATIVE); LEUKOCYTE ESTERASE URINE NEGATIVE (NEGATIVE); NITRITE URINE NEGATIVE (NEGATIVE); OCCULT BLOOD URINE NEGATIVE (NEGATIVE); PROTEIN URINE NEGATIVE (NEGATIVE); SPECIFIC GRAVITY URINE 1.038 (1.005-1.030); UROBILINOGEN URINE 0.2 E.U./dL (0.2-1.0)
[2020-11-10 10:59] VITALS: BP 171/106
== END 2020-11-10 11:07 | disposition home or self-care (01) ==
LOC: ER 03:25
DX: R20.0 Anesthesia of skin (principal); R73.9 Hyperglycemia, unspecified; I10 Essential (primary) hypertension; E87.1 Hypo-osmolality and hyponatremia; Z59.0 Homelessness
CPT/HCPCS: 36415; 80053; 80320; 81003; 82962; 85025; 99284; G0480

== ENCOUNTER 2021-07-06 16:11 | Emergency (ER) | payer MEDICAID ==
[~2021-07-06] VITALS: Ht 170.2 cm; Wt 98.0 kg
[~2021-07-06 16:11] MED LIST changes: +AMLO5TAB88 MT; -CLIN-26 PO; +DOXY100C5 PO; +EMPA10TA MT; -LANTUSUD SUBCUT; +METF-414 MT
[2021-07-06] MEDS ORDERED: SODIUM CHLORIDE 0.9% 1,000 ML IV ONE (18:00)
[2021-07-06 18:37] LABS: BASOPHILS % 0.5 % (0.0-2.0); EOSINOPHILS % 3.2 % (0.0-5.0); HEMATOCRIT. 40.7 % (42.0-52.0); HEMOGLOBIN. 14.3 g/dL (14.0-18.0); LYMPHOCYTES % 35.4 % (20.0-50.0); MEAN CORPUSCULAR HEMOGLOBIN 30.6 pg (28.0-32.0); MEAN PLATELET VOLUME 8.2 fl (7.4-10.4); MONOCYTES % 6.2 % (2.0-8.0); NEUTROPHILS % 54.7 % (40.0-76.0); PLATELET 246 x1000/uL (130-400); RED BLOOD CELL COUNT 4.68 mill/uL (4.7-6.1); RED CELL DISTRIBUTION WIDTH 14.6 % (11.6-14.6)
[2021-07-06 18:41] LABS: CHLORIDE 96 mEq/L (98-107)
[2021-07-06] MEDS ORDERED: INSULIN REGULAR (HUMULIN R) 300UNITS/3ML VIAL SUBCUT NR (18:45)
[2021-07-07 05:21] VITALS: BP 121/81
== END 2021-07-07 05:23 | disposition home or self-care (01) ==
LOC: ER 16:11
DX: E11.40 Type 2 diabetes mellitus with diabetic neuropathy, unspecified (principal); F32.9 Major depressive disorder, single episode, unspecified; E78.00 Pure hypercholesterolemia, unspecified; I10 Essential (primary) hypertension; F12.10 Cannabis abuse, uncomplicated; Z79.899 Other long term (current) drug therapy
CPT/HCPCS: 36415; 71045; 80048; 82962; 85025; 93005; 96372; 99285; J1815; J7030

== ENCOUNTER 2021-07-13 01:01 | Emergency (ER) | payer MEDICAID ==
[~2021-07-13] VITALS: Ht 172.7 cm; Wt 102.0 kg
[2021-07-13] MEDS ORDERED: MORPHINE SULFATE 4 MG/ML CPJ (NOT FOR IM USE) IV ONE (07:45)
[2021-07-13 10:29] VITALS: BP 132/78
== END 2021-07-13 10:33 | disposition home or self-care (01) ==
LOC: ER 01:01
DX: S52.322A Displaced transverse fracture of shaft of left radius, initial encounter for closed fracture (principal); S52.615A Nondisplaced fracture of left ulna styloid process, initial encounter for closed fracture; F32.A Depression, unspecified; E11.9 Type 2 diabetes mellitus without complications; I10 Essential (primary) hypertension; E78.00 Pure hypercholesterolemia, unspecified; F12.10 Cannabis abuse, uncomplicated; W03.XXXA Other fall on same level due to collision with another person, initial encounter; Y93.89 Activity, other specified; Y92.018 Other place in single-family (private) house as the place of occurrence of the external cause
CPT/HCPCS: 73060; 73070; 73090; 73110; 73130; 96374; 99284; J2270

== ENCOUNTER 2021-08-04 08:44 | Emergency (ER) | payer MEDICAID ==
[~2021-08-04] VITALS: Ht 167.6 cm; Wt 109.0 kg
[2021-08-04 08:47] VITALS: BP 150/97
[2021-08-04] MEDS ORDERED: KETOROLAC 15MG/ML VIAL IV ONE (10:15)
[2021-08-04] MEDS ORDERED: PIPERACILLIN/TAZ 3.375G PREMIX 50 ML IV ONE (10:15)
[2021-08-04] MEDS ORDERED: SODIUM CHLORIDE 0.9% 1000ML BAG (SEPSIS BOLUS) IV ONE (10:15)
[2021-08-04] MEDS ORDERED: VANCOMYCIN 1G PREMIX 200 ML IV ONE (10:15)
[2021-08-04 10:42] LABS: BASOPHILS % 0.5 % (0.0-2.0); EOSINOPHILS % 2.8 % (0.0-5.0); HEMATOCRIT. 42.6 % (42.0-52.0); HEMOGLOBIN. 14.8 g/dL (14.0-18.0); LYMPHOCYTES % 31.6 % (20.0-50.0); MEAN CORPUSCULAR HEMOGLOBIN 30.2 pg (28.0-32.0); MEAN PLATELET VOLUME 7.6 fl (7.4-10.4); MONOCYTES % 5.6 % (2.0-8.0); NEUTROPHILS % 59.5 % (40.0-76.0); PLATELET 288 x1000/uL (130-400); RED CELL DISTRIBUTION WIDTH 13.9 % (11.6-14.6)
[2021-08-04 10:48] LABS: CHLORIDE 106 mEq/L (98-107)
[2021-08-04 10:55] LABS: PARTIAL THROMBOPLASTIN TIME 26.4 sec (23.4-31.0); PROTHROMBIN TIME 10.5 sec (9.6-11.0)
[2021-08-04] MEDS ORDERED: CEPHALEXIN 250MG CAPSULE PO ONE (12:15)
[2021-08-04] MEDS ORDERED: SULFAMETHOXAZOLE/TRIMETHOPRIM 800/160MG TABLET PO ONE (12:15)
[2021-08-04] MEDS ORDERED: IBUP-2028 MT (12:20)
[2021-08-04] MEDS ORDERED: SULF1TAB48 MT (12:20)
[2021-08-04] MEDS ORDERED: CEPH500T MT (12:20)
== END 2021-08-04 12:57 | disposition home or self-care (01) ==
LOC: ER 09:14
DX: M79.602 Pain in left arm (principal); E11.9 Type 2 diabetes mellitus without complications; I10 Essential (primary) hypertension; F12.10 Cannabis abuse, uncomplicated; Z79.899 Other long term (current) drug therapy
CPT/HCPCS: 29125; 71045; 73090; 73110; 80053; 83605; 84145; 85025; 85610; 85651; 85730; 86140; 87040; 93005; 93971; 99285; J7030

== ENCOUNTER 2021-10-01 17:51 | Emergency (ER) | payer MEDICAID ==
[~2021-10-01] VITALS: Ht 175.3 cm; Wt 82.0 kg
[~2021-10-01 17:51] MED LIST changes: +CEPH500T MT; +IBUP-2028 MT; +SULF1TAB48 MT
[2021-10-01] MEDS ORDERED: SODIUM CHLORIDE 0.9% 1,000 ML IV ONE (22:30)
[2021-10-01 23:31] LABS: BASOPHILS % 0.6 % (0.0-2.0); HEMATOCRIT. 43.3 % (42.0-52.0); HEMOGLOBIN. 14.9 g/dL (14.0-18.0); MEAN CORPUSCULAR HEMOGLOBIN 30.6 pg (28.0-32.0); MEAN CORPUSCULAR VOLUME 89.1 fL (80.0-94.0); MEAN PLATELET VOLUME 7.7 fl (7.4-10.4); MONOCYTES % 6.5 % (2.0-8.0); NEUTROPHILS % 57.9 % (40.0-76.0); PLATELET 266 x1000/uL (130-400); RED BLOOD CELL COUNT 4.86 mill/uL (4.7-6.1); RED CELL DISTRIBUTION WIDTH 13.9 % (11.6-14.6)
[2021-10-01 23:39] LABS: CHLORIDE 93 mEq/L (98-107)
[2021-10-01 23:47] LABS: BETA HYDROXYBUTYRATE 0.1 mMol/L (0.0-0.3)
[2021-10-02] MEDS ORDERED: SODIUM CHLORIDE 0.9% 1,000 ML IV ONE ×2 (00:15)
[2021-10-02] MEDS ORDERED: CEPHALEXIN 250MG CAPSULE PO ONE (00:15)
[2021-10-02 00:46] LABS: CLARITY URINE CLEAR (CLEAR); COLOR URINE YELLOW (YELLOW); KETONES URINE NEGATIVE (NEGATIVE); LEUKOCYTE ESTERASE URINE NEGATIVE (NEGATIVE); NITRITE URINE NEGATIVE (NEGATIVE); OCCULT BLOOD URINE NEGATIVE (NEGATIVE); PROTEIN URINE NEGATIVE (NEGATIVE); SPECIFIC GRAVITY URINE 1.045 (1.005-1.030); UROBILINOGEN URINE 0.2 E.U./dL (0.2-1.0)
[2021-10-02] MEDS ORDERED: CEPH500C2 MT (00:46)
[2021-10-02 04:30] VITALS: BP 152/87
== END 2021-10-02 04:33 | disposition home or self-care (01) ==
LOC: ER 17:51
DX: E11.65 Type 2 diabetes mellitus with hyperglycemia (principal); L03.811 Cellulitis of head [any part, except face]; L02.31 Cutaneous abscess of buttock; I10 Essential (primary) hypertension; Z98.890 Other specified postprocedural states; Z79.84 Long term (current) use of oral hypoglycemic drugs; Z79.899 Other long term (current) drug therapy
CPT/HCPCS: 36415; 80053; 81003; 82010; 82962; 85025; 96360; 99285; J7030

== ENCOUNTER 2021-10-12 11:12 | Emergency (ER) | payer MEDICAID ==
[~2021-10-12] VITALS: Ht 177.8 cm; Wt 90.0 kg
[~2021-10-12 11:12] MED LIST changes: +CEPH500C2 MT
[2021-10-12 11:36] VITALS: BP 175/106
[2021-10-12 15:03] LABS: EOSINOPHILS % 1.7 % (0.0-5.0); HEMATOCRIT. 45.1 % (42.0-52.0); LYMPHOCYTES % 33.3 % (20.0-50.0); MEAN CORPUSCULAR HEMOGLOBIN 30.9 pg (28.0-32.0); MEAN PLATELET VOLUME 7.7 fl (7.4-10.4); MONOCYTES % 5.2 % (2.0-8.0); NEUTROPHILS % 58.8 % (40.0-76.0); PLATELET 307 x1000/uL (130-400); RED BLOOD CELL COUNT 5.19 mill/uL (4.7-6.1); RED CELL DISTRIBUTION WIDTH 13.5 % (11.6-14.6)
[2021-10-12 15:06] LABS: CHLORIDE 94 mEq/L (98-107)
[2021-10-12 16:11] LABS: PROTHROMBIN TIME 10.3 sec (9.6-11.0)
== END 2021-10-12 17:35 | disposition left against medical advice (07) ==
LOC: ER 11:12
DX: R07.89 Other chest pain (principal); R06.02 Shortness of breath
CPT/HCPCS: 36415; 80053; 82962; 85025; 93005; 99284

== ENCOUNTER 2021-11-13 14:31 | Emergency (ER) | payer MEDICAID ==
[~2021-11-13] VITALS: Ht 175.3 cm; Wt 82.0 kg
[~2021-11-13 14:31] MED LIST changes: -CEPH500C2 MT; -CEPH500T MT; -DOXY100C5 PO; +INSU100I28 SQ; -SULF1TAB48 MT
[2021-11-13] MEDS ORDERED: KETOROLAC 30MG/ML VIAL IV STA (16:37)
[2021-11-13] MEDS ORDERED: ONDANSETRON HCL 4MG/2ML INJ IV STA (16:37)
[2021-11-13] MEDS ORDERED: SODIUM CHLORIDE 0.9% 1,000 ML IV ONE (16:45)
[2021-11-13 17:32] LABS: CHLORIDE 101 mEq/L (98-107)
[2021-11-13 17:38] LABS: BASOPHILS % 0.7 % (0.0-2.0); EOSINOPHILS % 1.2 % (0.0-5.0); HEMATOCRIT. 41.7 % (42.0-52.0); HEMOGLOBIN. 14.4 g/dL (14.0-18.0); LYMPHOCYTES % 40.8 % (20.0-50.0); MEAN CORPUSCULAR VOLUME 86.8 fL (80.0-94.0); MEAN PLATELET VOLUME 7.9 fl (7.4-10.4); MONOCYTES % 6.1 % (2.0-8.0); NEUTROPHILS % 51.2 % (40.0-76.0); PLATELET 246 x1000/uL (130-400); RED BLOOD CELL COUNT 4.81 mill/uL (4.7-6.1); RED CELL DISTRIBUTION WIDTH 12.9 % (11.6-14.6)
[2021-11-13 17:44] LABS: BETA HYDROXYBUTYRATE 0.1 mMol/L (0.0-0.3)
[2021-11-13 18:07] LABS: CLARITY URINE CLEAR (CLEAR); COLOR URINE YELLOW (YELLOW); KETONES URINE NEGATIVE (NEGATIVE); LEUKOCYTE ESTERASE URINE NEGATIVE (NEGATIVE); NITRITE URINE NEGATIVE (NEGATIVE); OCCULT BLOOD URINE NEGATIVE (NEGATIVE); PH URINE 6.5 (4.5-8.0); PROTEIN URINE NEGATIVE (NEGATIVE); SPECIFIC GRAVITY URINE 1.036 (1.005-1.030)
[2021-11-13] MEDS ORDERED: INSULIN REGULAR (HUMULIN R) 300UNITS/3ML VIAL SUBCUT ONE (18:30)
[2021-11-13] MEDS ORDERED: AMLODIPINE 5MG TABLET PO ONE (18:30)
[2021-11-13 18:35] VITALS: BP 161/98
[2021-11-13] MEDS ORDERED: CEFTRIAXONE 1 G PREMIX 50 ML IV NR (18:45)
[2021-11-13] MEDS ORDERED: AMLO5TAB88 PO (19:13)
[2021-11-13] MEDS ORDERED: METF-414 MT (19:13)
[2021-11-13] MEDS ORDERED: INSU100I28 SQ ×3 (19:13→19:29)
[2021-11-13] MEDS ORDERED: DOXY100T28 PO (19:13)
[2021-11-13] MEDS ORDERED: FLUC150T46 PO (19:13)
[2021-11-13] MEDS ORDERED: CLOT15CR27 TP (19:13)
[2021-11-13] MEDS ORDERED: NAPR-681 PO (19:13)
== END 2021-11-13 20:37 | disposition home or self-care (01) ==
LOC: ER 14:31
DX: U07.1 COVID-19 (principal); E11.65 Type 2 diabetes mellitus with hyperglycemia; K85.90 Acute pancreatitis without necrosis or infection, unspecified; I10 Essential (primary) hypertension; Z91.14 Patient's other noncompliance with medication regimen; Z79.4 Long term (current) use of insulin
CPT/HCPCS: 36415; 80053; 81003; 82010; 82962; 83690; 85025; 87426; 96361; 96365; 96372; 96375; 99284; C9803; J0696; J1815; J1885; J2405; J7030